=== PATIENT | female | born 1955 | race Two or more races ===

== ENCOUNTER 2017-02-20 08:35 | Emergency (ER) | payer BC ==
[~2017-02-20] VITALS: Ht 160 cm; Wt 68.0 kg
[2017-02-20 09:00] VITALS: BP 148/79
[2017-02-20] MEDS ORDERED: TYLENOL EXTRA500 MG ORAL (09:25)
[2017-02-20 09:30] VITALS: BP 136/65
--- NOTE | 2017-02-20 09:49 | Diagnostic Imaging Report ---
Indications: Left hand trauma, pain Technique: 3 views left hand. Findings: Comparison: None Rings on the fourth and fifth fingers focally obscure underlying portions of proximal phalanges. No fracture, dislocation, joint space widening , surrounding soft tissue swelling/foreign body/gas, or other acute changes are identified. IMPRESSION: No evidence of acute injury , with limitation as described.
--- NOTE | 2017-02-20 09:51 | Diagnostic Imaging Report ---
Indications: Left wrist trauma, pain Technique: 3 views left wrist. Findings: Comparison: None There is suggestion of a nondisplaced fracture through the distal radial metaphysis. Surrounding soft tissues appear mildly swollen. No additional Fracture, dislocation, joint space widening , soft tissue foreign body/gas, or other acute changes are identified. IMPRESSION: Ingestion of nondisplaced fracture distal radius. Correlate clinically. .
--- NOTE | 2017-02-20 10:11 | Emergency Room Report ---
History of Present Illness General Chief Complaint: Upper Extremity Injury Source: Patient Present Illness HPI 61-year-old female presents ED complaining of left wrist pain. States 2 days ago she had a mechanical trip and fall landing on her left wrist. Denies any other injuries. Notes pain and some swelling to left wrist. 8/10, throbbing, nonradiating. No other aggravating relieving factors. Denies any other associated symptoms Allergies: Coded Allergies: MEPERIDINE (Verified Allergy, Unknown, 02/20/17) Patient History Past Medical History: HTN Past Surgical History: none Pertinent Family History: none Social History: Denies: alcohol use, drug use, smoking Now: No Immunizations: UTD Reviewed Nursing Documentation: PMH: Agreed, PSxH: Agreed Nursing Documentation-PMH Hx Hypertension: Yes Review of Systems All Other Systems: negative except mentioned in HPI Physical Exam Vital Signs Date Time Temp Pulse Resp B/P Pulse Ox O2 Delivery O2 Flow Rate FiO2 02/20/17 08:39 97.7 71 15 148/79 98 Room Air Sp02 EP Interpretation: reviewed, normal General Appearance: no apparent distress, alert, GCS 15, non-toxic Head: normocephalic Eyes: bilateral eye PERRL, bilateral eye normal inspection ENT: normal ENT inspection Neck: normal inspection Respiratory: normal inspection Cardiovascular #1: normal inspection Gastrointestinal: normal inspection Rectal: deferred Genitourinary: no CVA tenderness Musculoskeletal: tender - L wrist Neurologic: alert, oriented x3, responsive, motor strength/tone normal, sensory intact, speech normal Psychiatric: judgement/insight normal, memory normal, mood/affect normal, no suicidal/homicidal ideation Skin: normal inspection Lymphatic: normal inspection Procedures Splinting Splinting : Consent: Verbal Pre-Made Type: velcro Splint: wrist Pre-Proc Neuro Vasc Exam: normal Post-Proc Neuro Vasc Exam: normal Patient Tolerated: Well Complications: None Medical Decision Making Diagnostic Impression: Primary Impression: Wrist sprain Qualified Codes: S63.502A - Unspecified sprain of left wrist, initial encounter ER Course Hospital Course 61-year-old F presents to ED complaining of L wrist pain s/p trip and fall Differential diagnoses include: Fracture, dislocation, sprain, contusion Clinical course Patient placed on stretcher. After initial history and physical, I ordered Xrays of L hand wrist Xrays prelim read shows no acute fracture/dislocation. placed in wrist splint Diagnosis - wrist sprain Stable and discharged to home with prescription for Tylenol. apply ice, keep elevated. weight bear as tolerated. Followup with PMD. Return to ED if symptoms recur or worsen Other X-Ray Diagnostic Results Other X-Ray Diagnostic Results #1: X-Ray ordered: L hand # of Views/Limited Vs Complete: 3 View EP Interpretation: Yes Interpretation: no fractures, no dislocation, no soft tissue swelling Indication: Pain Impression: No acute disease Interpreting ER Provider: Dheeraj Sky MD Other X-Ray Diagnostic Results #2: X-Ray ordered: L wrist # of Views/Limited Vs Complete: 3 View EP Interpretation: Yes Interpretation: no fractures, no dislocation, no soft tissue swelling Indication: Pain Impression: No acute disease Interpreting ER Provider: Dheeraj Sky MD Last Vital Signs Date Time Temp Pulse Resp B/P Pulse Ox O2 Delivery O2 Flow Rate FiO2 02/20/17 09:30 68 16 136/65 100 Room Air 02/20/17 09:00 97.7 Status: improved Disposition: HOME, SELF-CARE Condition: Stable Scripts Acetaminophen* (TYLENOL EXTRA STRENGTH*) 500 Mg Tablet 500 MG ORAL Q8H Y for Prn Headache/Temp > 101, #30 TAB 0 Refills Prov: DHEERAJ SKY M.D. 02/20/17 Departure Forms: Return to Work Return to Work Date: Feb 20, 2017 Work Restrictions: No Heavy Lifting Patient Instructions: Wrist Sprain With [facility] DHEERAJ SKY M.D. Feb 20, 2017 10:11
== END 2017-02-20 09:30 | disposition home or self-care (01) ==
LOC: EMR 09:18
DX: S63.502A Unspecified sprain of left wrist, initial encounter (principal); I10 Essential (primary) hypertension; Z88.8 Allergy status to other drugs, medicaments and biological substances; W01.0XXA Fall on same level from slipping, tripping and stumbling without subsequent striking against object, initial encounter; Y92.9 Unspecified place or not applicable
CPT/HCPCS: 29260; 99284